=== PATIENT | female | born 1945 | race Caucasian/White ===

== ENCOUNTER 2025-07-01 06:11 | Outpatient (REF) | payer MEDICARE, SELFPAY ==
[2025-07-01 08:02] LABS: Anion Gap 16 (12-20); Blood Urea Nitrogen 66 mg/dL (9-16); Calcium 9.7 mg/dL (8.4-10.2); Carbon Dioxide 33 mmol/L (22-29); Chloride 92 mmol/L (96-108); Estimated Glomerular Filt Rate 24; Potassium 3.4 mmol/L (3.3-5.1); Sodium 138 mmol/L (135-145)
== END 2025-07-01 06:12 | disposition home or self-care (01) ==
LOC: HO.MMNH2L 06:11
DX: I27.82 Chronic pulmonary embolism (principal)
CPT/HCPCS: 36415; 80048